=== PATIENT | male | born 1955 ===

== ENCOUNTER 2024-10-06 10:02 | Day surgery (SDC) | payer OTHER ==
[~2024-10-06] VITALS: Ht 177.8 cm; Wt 98.3 kg
[~2024-10-06 10:02] MED LIST: Balanced Salt Epinephrine Irrigation Solution 500 mL IR SCH; Lidocaine HCl/Pf 1% 5 ML VIAL XX SCH; Metrogel 1% 6060 GM; Moxifloxacin HCL 0.5 MG/0.1 ML 0.4MLSYR RIGHTEYE SCH; PHENYLEPHRINE\\TROPICAMIDE\\TETRACAINE OPHTHALMIC DILATING SOLN RIGHTEYE PRN; Povidone-Iodine 450 DROP/30 ML Solution RIGHTEYE SCH
[2024-10-06] MEDS ORDERED: Diazepam 2 MG Tab ONE (10:33)
[2024-10-06] MEDS ORDERED: Diazepam 5 MG Tab ONE (10:33)
--- NOTE | 2024-10-06 10:48 | NUR ---
10/06/24 1048 Darin Clancy CALL LIGHT WITHIN REACH. TETRACAINE IN RIGHT EYE AT 1045 AND PLEDGETT IN AT 1047
[2024-10-06] MEDS ORDERED: Tetracaine HCl 0.5% Opth Soln 15 ml RIGHTEYE ONE (11:24)
[2024-10-06 11:43] VITALS: BP 129/62
[2024-10-06] MEDS ORDERED: Povidone-Iodine 450 DROP/30 ML Solution XX ONE (15:34)
== END 2024-10-06 12:00 | disposition home or self-care (01) ==
LOC: ORSCSDS 10:02
PROVIDERS: Student in an Organized Health Care Education/Training Program
PROC: 08RJ3JZ Replacement of Right Lens with Synthetic Substitute, Percutaneous Approach (ICD-10-PCS; principal; 2024-10-06 11:30)
DX: H25.813 Combined forms of age-related cataract, bilateral (principal)
CPT/HCPCS: A9270; V2632

== ENCOUNTER 2024-10-13 10:14 | Day surgery (SDC) | payer OTHER ==
[~2024-10-13] VITALS: Ht 177.8 cm; Wt 99.4 kg
[~2024-10-13 10:14] MED LIST changes: +Moxifloxacin HCL 0.5 MG/0.1 ML 0.4MLSYR LEFTEYE SCH; -Moxifloxacin HCL 0.5 MG/0.1 ML 0.4MLSYR RIGHTEYE SCH; +PHENYLEPHRINE\\TROPICAMIDE\\TETRACAINE OPHTHALMIC DILATING SOLN LEFTEYE PRN; -PHENYLEPHRINE\\TROPICAMIDE\\TETRACAINE OPHTHALMIC DILATING SOLN RIGHTEYE PRN; +Povidone-Iodine 450 DROP/30 ML Solution LEFTEYE SCH; +Povidone-Iodine 450 DROP/30 ML Solution ONE; -Povidone-Iodine 450 DROP/30 ML Solution RIGHTEYE SCH; +Tetracaine HCl/Pf 0.5% Opth Soln 4 ml ONE
[2024-10-13] MEDS ORDERED: Diazepam 2 MG Tab ONE (10:27)
[2024-10-13] MEDS ORDERED: Diazepam 5 MG Tab ONE (10:28)
[2024-10-13] MEDS ORDERED: Ondansetron HCl 2 MG / ML 2ML Vial ONE (10:32)
[2024-10-13 11:53] VITALS: BP 122/68
== END 2024-10-13 11:51 | disposition home or self-care (01) ==
LOC: ORSCSDS 10:14
PROVIDERS: Student in an Organized Health Care Education/Training Program
PROC: 08RK3JZ Replacement of Left Lens with Synthetic Substitute, Percutaneous Approach (ICD-10-PCS; principal; 2024-10-13 11:30)
DX: H25.812 Combined forms of age-related cataract, left eye (principal); Z96.1 Presence of intraocular lens
CPT/HCPCS: A9270; J2405; V2632